=== PATIENT | male | born 1980 | race Caucasian/White ===

== ENCOUNTER 2017-05-21 00:30 | Emergency (ER) | payer SELFPAY ==
[~2017-05-21] VITALS: Ht 177.8 cm; Wt 76.5 kg
[2017-05-21 00:33] VITALS: BP 123/83
== END 2017-05-21 02:58 | disposition left against medical advice (07) ==
LOC: ED 02:52
DX: M25.552 Pain in left hip (principal); Z53.21 Procedure and treatment not carried out due to patient leaving prior to being seen by health care provider